=== PATIENT | female | born 1995 | race Caucasian/White ===

== ENCOUNTER 2017-02-24 08:27 | Emergency (ER) | payer OTHER ==
[2017-02-24 08:43] VITALS: BP 138/84
--- NOTE | 2017-02-24 09:44 | UC ---
UC General HPI - HPI Summary HPI Summary: SEVERAL DAYS OF BODY ACHES, ST, INTERMITTENT LOW GRADE FEVER, LOOSE STOOLS, NAUSEA. ALSO C/O 1 WEEK OF MALODOROUS VAGINAL D/C WITH SOME IRRITATION. NO URINARY SX. HAS BEEN HAVING UNPROTECTED SEX WITH BF. STATES SHE HAS HAD BV BEFORE AND THIS FEELS THE SAME. - History of Current Complaint Chief Complaint: UCGeneralIllness Stated Complaint: DIARRHEA VOMITING SORE THROAT CHILLS Time Seen by Provider: 02/24/17 08:57 Hx Obtained From: Patient Onset/Duration: Gradual Onset, Lasting Days, Still Present Timing: Constant Onset Severity: Moderate Current Severity: Moderate Pain Intensity: 7 Associated Signs & Symptoms: Positive: Cough, Fever, Nausea - Allergy/Home Medications Allergies/Adverse Reactions: Allergies Allergy/AdvReac Type Severity Reaction Status Date / Time Amoxicillin Allergy Severe Hives Verified 10/23/16 12:15 Home Medications: Home Medications hydrOXYzine HCL TAB* [Atarax 25 MG TAB*] PRN 02/24/17 [History] PMH/Surg Hx/FS Hx/Imm Hx Endocrine History Of: Denies: Diabetes, Thyroid Disease Cardiovascular History Of: Denies: Cardiac Disorders, Hypertension Respiratory History Of: Reports: Asthma Denies: COPD GI/ History Of: Denies: Ulcer Psychological History Of: Reports: Anxiety, Depression, Bipolar Disorder - Surgical History Surgical History: None - Family History Known Family History: Positive: Other - no fh of bleeding disorder. - Social History Alcohol Use: None Substance Use Type: Heroin, Prescribed, Other Substance Use Comment - Amount & Last Used: 05/03/15, clean for 16 months Smoking Status (MU): Light Every Day Tobacco Smoker Type: Cigarettes Amount Used/How Often: 1/2 ppd Length of Time of Smoking/Using Tobacco: 4-5 YRS Have You Smoked in the Last Year: Yes Household Exposure Type: Cigarettes - Immunization History Most Recent Influenza Vaccination: Refused Most Recent Tetanus Shot: 2010 Review of Systems Constitutional: Fever, Chills, Fatigue ENT: Sore Throat, Nasal Discharge Respiratory: Cough Cardiovascular: Negative Gastrointestinal: Diarrhea, Other - NAUSEA Genitourinary: Other - VAGINAL D/C All Other Systems Reviewed And Are Negative: Yes Physical Exam Triage Information Reviewed: Yes Appearance: Well-Appearing, No Pain Distress, Well-Nourished Vital Signs: Initial Vital Signs Temp 98.6 F 02/24/17 08:36 Pulse 101 02/24/17 08:36 Resp 18 02/24/17 08:36 BP 138/84 02/24/17 08:36 Pulse Ox 98 02/24/17 08:36 Vital Signs Reviewed: Yes Eyes: Positive: Conjunctiva Clear ENT: Positive: Hearing grossly normal Neck: Positive: Supple, Nontender, No Lymphadenopathy Respiratory Exam: Normal Cardiovascular: Positive: Tachycardia Abdomen Description: Positive: Soft Musculoskeletal: Positive: No Edema Neurological: Positive: Alert Psychological: Positive: Age Appropriate Behavior Skin: Negative: rashes Course/Dx - Differential Dx - Multi-Symptom Provider Diagnoses: 1. ACUTE VIRAL ILLNESS. 2. PRESUMPTIVE BV Discharge - Discharge Plan Condition: Stable Disposition: HOME Prescriptions: Metronidazole (Topical) [Metrogel] 1 applic VAGINAL DAILY #1 tube Patient Education Materials: Bacterial Vaginosis (ED), Viral Syndrome (ED) Forms: *Work Release Referrals: David Gong MD [Primary Care Provider] - If Needed
== END 2017-02-24 09:55 | disposition home or self-care (01) ==
LOC: UCEAST 08:27
DX: B34.9 Viral infection, unspecified (principal); J45.909 Unspecified asthma, uncomplicated; F11.90 Opioid use, unspecified, uncomplicated; F33.9 Major depressive disorder, recurrent, unspecified; F41.9 Anxiety disorder, unspecified; Z88.3 Allergy status to other anti-infective agents
CPT/HCPCS: 99212; G0463

== ENCOUNTER 2017-08-09 18:53 | Emergency (ER) | payer OTHER ==
[2017-08-09 19:03] VITALS: BP 140/83
--- NOTE | 2017-08-12 02:52 | ED ---
Throat Pain/Nasal Congestion - HPI Summary HPI Summary: Pt here w/ Rt earlobe tear - was trying to stretch gauge and tore lobe at 20: 00. Painful. No current bleeding. Would like repair. Imms are UTD. - History of Current Complaint Chief Complaint: EDLacSutureRecheck Time Seen by Provider: 08/09/17 19:11 Hx Obtained From: Patient - Allergies/Home Medications Allergies/Adverse Reactions: Allergies Allergy/AdvReac Type Severity Reaction Status Date / Time Amoxicillin Allergy Severe Hives Verified 10/23/16 12:15 PMH/Surg Hx/FS Hx/Imm Hx Previously Healthy: Yes Endocrine/Hematology History: Denies: Hx Anticoagulant Therapy, Hx Blood Disorders, Hx Diabetes, Hx Thyroid Disease Cardiovascular History: Denies: Hx Hypertension Respiratory History: Reports: Hx Asthma Denies: Hx Chronic Obstructive Pulmonary Disease (COPD) GI History: Denies: Hx Ulcer Psychiatric History: Reports: Hx Anxiety, Hx Depression, Hx Bipolar Disorder Infectious Disease History: No Infectious Disease History: Denies: Hx Clostridium Difficile, Hx Hepatitis, Hx Human Immunodeficiency Virus (HIV), Hx of Known/Suspected MRSA, Hx Shingles, Hx Tuberculosis, Hx Known/ Suspected VRE, Hx Known/Suspected VRSA, History Other Infectious Disease, Traveled Outside the [place] in Last 30 Days - Family History Known Family History: Positive: None, Other - no fh of bleeding disorder. - Social History Lives: Dormitory/Roommates Alcohol Use: Occasionally Hx Substance Use: Yes Substance Use Type: Reports: Heroin, Prescribed, Other Substance Use Comment - Amount & Last Used: 05/03/15, clean for 16 months Hx Tobacco Use: Yes Smoking Status (MU): Current Every Day Smoker Type: Cigarettes Amount Used/How Often: 1/2 ppd Length of Time of Smoking/Using Tobacco: 4-5 YRS Have You Smoked in the Last Year: Yes Review of Systems Constitutional: Negative Negative: Fever, Chills Negative: Vomiting, Nausea Positive: no symptoms reported Musculoskeletal: Negative Skin: Other - see HPI Neurological: Negative Positive: Anxious All Other Systems Reviewed And Are Negative: Yes Physical Exam Triage Information Reviewed: Yes Vital Signs On Initial Exam: Initial Vitals Temp Pulse Resp BP Pulse Ox 98.5 F 95 14 140/83 97 08/09/17 19:02 08/09/17 19:02 08/09/17 19:02 08/09/17 19:02 08/09/17 19:02 Vital Signs Reviewed: Yes Appearance: Positive: Well-Appearing, No Pain Distress, Well-Nourished Skin: Positive: Warm, Dry - Rt earlobe with tear through previous piercing - no active bleeding but tissue is moist w/ blood at wound edges Head/Face: Positive: Normal Head/Face Inspection Eyes: Positive: Normal, EOMI ENT: Positive: Hearing grossly normal, Pharynx normal Neck: Positive: Supple Respiratory/Lung Sounds: Positive: Breath Sounds Present Cardiovascular: Positive: Normal Musculoskeletal: Positive: Normal, Strength/ROM Intact Neurological: Positive: Normal, Sensory/Motor Intact, Alert, Oriented to Person Place, Time, CN Intact II-III Psychiatric: Positive: Anxious Diagnostics - Vital Signs Vital Signs Temp Pulse Resp BP Pulse Ox 08/09/17 19:03 98.5 F 95 14 140/83 97 08/09/17 19:02 98.5 F 95 14 140/83 97 - Laboratory Lab Statement: Any lab studies that have been ordered have been reviewed, and results considered in the medical decision making process. EENT Course/Dx - Course Course Of Treatment: Discussed with patient that I would consult plastic surgery to address best outcome of her current condition. When I returned to discuss her options she stated she needed to leave right away as she was borrowing her roommates car and had to get it back to her so roommate could go to work. Offered to suture pt's ear here tonight but she tells me she couldn't stay. Told her she could come back later tonight or go to plastic surgery tomorrow - she opted for the latter. Triple anbx ointment and bandaid applied. Pt left before further tx of anbx could be discussed. - Diagnoses Provider Diagnoses: Tear of right earlobe - Provider Notifications Discussed Care Of Patient With: Omari Vargas Discharge - Discharge Plan Condition: Stable Disposition: HOME Patient Education Materials: Acute Wound Care (ED) Referrals: Oamri Vargas MD [Medical Doctor] - Additional Instructions: Gently wash with soap and water Apply triple ointment and bandaid tonight Follow-up with Dr. Vargas's office tomorrow morning - of you delay care, wound will need to be reopened at a later date in time *If you develop redness, swelling, purulent drainage, fever, return to ED.
== END 2017-08-09 21:25 | disposition home or self-care (01) ==
LOC: ED 18:53
DX: S01.311A Laceration without foreign body of right ear, initial encounter (principal); X58.XXXA Exposure to other specified factors, initial encounter; Y92.9 Unspecified place or not applicable; F31.9 Bipolar disorder, unspecified; F17.210 Nicotine dependence, cigarettes, uncomplicated; Z53.29 Procedure and treatment not carried out because of patient's decision for other reasons
CPT/HCPCS: 99281

== ENCOUNTER 2018-05-16 22:19 | Emergency (ER) | payer OTHER ==
[2018-05-16 23:46] LABS: ABS Basophils 0 10^3/ul (0-0.2); ABS Eosinophils 0.3 10^3/ul (0-0.6); ABS Lymphocytes 2.3 10^3/ul (1.0-4.8); ABS Monocytes 0.7 10^3/ul (0-0.8); ABS Neutrophils 2.7 10^3/ul (1.5-7.7); ABS Nucleated RBC 0 10^3/ul; Eosinophil % 5.1 % (0-6); Hematocrit 36 % (35-47); Hemoglobin 12.5 g/dl (12.0-16.0); Lymphocyte % 38.4 % (25-47); Mean Corpuscular HGB Conc 35 g/dl (31-36); Mean Corpuscular Hemoglobin 29 pg (27-31); Mean Corpuscular Volume 84 fL (80-97); Mean Platelet Volume 8.1 um3 (7.4-10.4); Nucleated Red Blood Cells % 0.1; Platelet Count 272 10^3/ul (150-450); Red Blood Count 4.25 10^6/ul (4.00-5.40); Red Cell Distribution Width 13 % (10.5-15)
[2018-05-17 00:03] LABS: EGFR Non-African American 106.3 (>60)
[2018-05-17 01:19] VITALS: BP 114/67
--- NOTE | 2018-05-17 05:07 | ED ---
Donn Castillo Gabriel, scribed for Dieudonne Pham MD on 05/16/18 at 2311 . Lower Extremity - HPI Summary HPI Summary: This patient is a 23 year old F presenting to [facility] accompanied by her mother with a chief complaint of bilateral LE edema that she noticed 3 weeks ago. The patient rates the pain 3/10 in severity. Patient reports a warm spot on her LE and LE pain. Pt denies fever, CP, and SOB. Pt left [facility] two weeks ago, there she was given a diuretic that she still takes. Fmhx of DVT. - History of Current Complaint Chief Complaint: EDExtremityLower Stated Complaint: LEGS SWOLLEN Time Seen by Provider: 05/16/18 22:57 Hx Obtained From: Patient Hx Last Menstrual Period: 02/10/17 Onset/Duration: Still Present Severity Initially: Moderate Severity Currently: Moderate Pain Intensity: 3 Pain Scale Used: 0-10 Numeric Timing: Constant Location: Is Diffuse - bilateral LE Associated Signs And Symptoms: Positive: Swelling. Negative: Fever Able to Bear Weight: Yes - Allergies/Home Medications Allergies/Adverse Reactions: Allergies Allergy/AdvReac Type Severity Reaction Status Date / Time amoxicillin Allergy Hives Verified 05/16/18 22:23 codeine Allergy Hives Verified 05/16/18 22:23 Home Medications: Home Medications Buprenorphine HCl/Naloxone HCl [Suboxone 12 mg-3 mg Sl Film] 1 each SL DAILY [History Confirmed 05/16/18] Buprenorphine HCl/Naloxone HCl [Suboxone] 1 mis SL DAILY 05/16/18 [History Confirmed 05/16/18] Divalproex ER TAB(*) [Depakote ER TAB(*)] 500 mg PO BID 05/16/18 [History Confirmed 05/16/18] Gabapentin 300 mg PO TID 05/16/18 [History Confirmed 05/16/18] busPIRone TAB* [Buspar TAB *] 7.5 mg PO TID 05/16/18 [History Confirmed 05/16/18 ] PMH/Surg Hx/FS Hx/Imm Hx Endocrine/Hematology History: Denies: Hx Anticoagulant Therapy, Hx Blood Disorders, Hx Diabetes, Hx Thyroid Disease Cardiovascular History: Denies: Hx Hypertension Respiratory History: Reports: Hx Asthma Denies: Hx Chronic Obstructive Pulmonary Disease (COPD) GI History: Denies: Hx Ulcer Psychiatric History: Reports: Hx Anxiety, Hx Depression, Hx Bipolar Disorder, Hx Substance Abuse Infectious Disease History: No Infectious Disease History: Denies: Hx Clostridium Difficile, Hx Hepatitis, Hx Human Immunodeficiency Virus (HIV), Hx of Known/Suspected MRSA, Hx Shingles, Hx Tuberculosis, Hx Known/ Suspected VRE, Hx Known/Suspected VRSA, History Other Infectious Disease, Traveled Outside the [place] in Last 30 Days - Family History Known Family History: Positive: Blood Disorder - DVT , Other - no fh of bleeding disorder. Negative: Respiratory Disease, Seizure Disorder - Social History Lives: With Family Alcohol Use: Occasionally Hx Substance Use: Yes Substance Use Type: Reports: Heroin, Prescribed, Other Substance Use Comment - Amount & Last Used: 05/03/15, clean for 16 months Hx Tobacco Use: Yes Smoking Status (MU): Current Every Day Smoker Type: Cigarettes Amount Used/How Often: 1/2 ppd Length of Time of Smoking/Using Tobacco: 4-5 YRS Have You Smoked in the Last Year: Yes Review of Systems Negative: Fever Negative: Chest Pain Negative: Shortness Of Breath Musculoskeletal: Other - LE pain Positive: Edema All Other Systems Reviewed And Are Negative: Yes Physical Exam - Summary Physical Exam Summary: Appearance: Well appearing, no pain distress, patient has a baseline tremor Skin: warmth and redness on the interior lower leg with excoriations Head/face: normal Eyes: EOMI, KARLOS ENT: normal Neck: supple, non-tender Respiratory: CTA, breath sounds present Cardiovascular: RRR, pulses symmetrical Abdomen: non-tender, soft Bowel Sounds: present Musculoskeletal: strength/ROM intact, 2-3+ bilateral pitting edema that does not extend above the knees Neuro: normal, sensory motor intact, A&Ox3 Triage Information Reviewed: Yes Vital Signs On Initial Exam: Initial Vitals Temp Pulse Resp BP Pulse Ox 97.4 F 112 14 117/76 97 05/16/18 22:20 05/16/18 22:20 05/16/18 22:20 05/16/18 22:20 05/16/18 22:20 Vital Signs Reviewed: Yes Diagnostics - Vital Signs Vital Signs Temp Pulse Resp BP Pulse Ox 05/16/18 22:20 97.4 F 112 14 117/76 97 - Laboratory Lab Results: Lab Results 05/16/18 05/16/18 Range/Units 23:36 23:36 WBC 6.0 (3.5-10.8) 10^3/ul RBC 4.25 (4.00-5.40) 10^6/ul Hgb 12.5 (12.0-16.0) g/dl Hct 36 (35-47) % MCV 84 (80-97) fL MCH 29 (27-31) pg MCHC 35 (31-36) g/dl RDW 13 (10.5-15) % Plt Count 272 (150-450) 10^3/ul MPV 8.1 (7.4-10.4) um3 Neut % (Auto) 44.4 (38-83) % Lymph % (Auto) 38.4 (25-47) % [place] % (Auto) 11.6 H (0-7) % Eos % (Auto) 5.1 (0-6) % Baso % (Auto) 0.5 (0-2) % Absolute Neuts (auto) 2.7 (1.5-7.7) 10^3/ul Absolute Lymphs (auto) 2.3 (1.0-4.8) 10^3/ul Absolute Monos (auto) 0.7 (0-0.8) 10^3/ul Absolute Eos (auto) 0.3 (0-0.6) 10^3/ul Absolute Basos (auto) 0 (0-0.2) 10^3/ul Absolute Nucleated RBC 0 10^3/ul Nucleated RBC % 0.1 Sodium 137 (135-145) mmol/L Potassium 4.2 (3.5-5.0) mmol/L Chloride 99 L (101-111) mmol/L Carbon Dioxide 31 (22-32) mmol/L Anion Gap 7 (2-11) mmol/L BUN 11 (6-24) mg/dL Creatinine 0.68 (0.51-0.95) mg/dL Est GFR ( Amer) 136.7 (>60) Est GFR (Non-Af Amer) 106.3 (>60) BUN/Creatinine Ratio 16.2 (8-20) Glucose 106 H (70-100) mg/dL Calcium 9.5 (8.6-10.3) mg/dL Total Bilirubin 0.30 (0.2-1.0) mg/dL AST 20 (13-39) U/L ALT 11 (7-52) U/L Alkaline Phosphatase 42 (34-104) U/L Total Protein 6.7 (6.4-8.9) g/dL Albumin 3.5 (3.2-5.2) g/dL Globulin 3.2 (2-4) g/dL Albumin/Globulin Ratio 1.1 (1-3) Beta HCG, Quant < 0.60 mIU/mL Valproic Acid 35.0 L (50-100) mcg/mL Result Diagrams: 05/16/18 23:36 05/16/18 23:36 Lab Statement: Any lab studies that have been ordered have been reviewed, and results considered in the medical decision making process. - Ultrasound No standard instances Ultrasound Interpretation Completed By: Radiologist - Venous doppler- no DVT. Dr. Pham has reviewed this report. Lower Extremity Course/Dx - Course Course Of Treatment: Patient with now chronic lower extremity edema. Patient is on a host of medications which are likely causing the symptoms. Her legs have not appreciably changed in a couple weeks. Lasix has no effect. Negative for DVT. Laboratories otherwise unrevealing. Encouraged patient to wear compression stockings, follow up closely with her primary care physician and psychiatry for medication reevaluation. - Diagnoses Differential Diagnosis/HQI/PQRI: Positive: Other - DVT, cellulitis, medication effect, venous insufficiency, nephrotic syndrome Provider Diagnoses: Bilateral leg edema, Medication side effect Discharge - Sign-Out/Discharge Documenting (check all that apply): Discharge/Admit/Transfer - Discharge Plan Condition: Improved Disposition: HOME Patient Education Materials: Leg Edema (ED) Referrals: David Gong MD [Primary Care Provider] - Additional Instructions: Work impression stockings as discussed. See her doctor as soon as possible to discuss medications. Swelling is likely caused by a combination of medications that you are on. Return if worse, fevers, new symptoms or other concerns. - Billing Disposition and Condition Condition: IMPROVED Disposition: Home The documentation as recorded by the Donn winchester Gabriel accurately reflects the service I personally performed and the decisions made by , Dieudonne Pham MD.
--- NOTE | 2018-05-17 07:45 | RAD ---
INDICATION: Bilateral lower extremity edema. COMPARISON: There are no prior studies available for comparison. TECHNIQUE: Multiple real-time, color flow and Doppler tracings of both lower extremities were obtained. FINDINGS: The common femoral, femoral, profunda femoral and popliteal veins all demonstrate normal compressibility, augmentation with compression and phasic response with respiration. The posterior tibial and peroneal veins demonstrate normal compressibility and augmentation with compression. IMPRESSION: NO EVIDENCE FOR DEEP VENOUS THROMBOSIS.
== END 2018-05-17 01:21 | disposition home or self-care (01) ==
LOC: ED 22:19
DX: R60.0 Localized edema (principal); T50.905A Adverse effect of unspecified drugs, medicaments and biological substances, initial encounter; Y92.9 Unspecified place or not applicable; F17.210 Nicotine dependence, cigarettes, uncomplicated; Z83.2 Family history of diseases of the blood and blood-forming organs and certain disorders involving the immune mechanism; F32.9 Major depressive disorder, single episode, unspecified; F41.9 Anxiety disorder, unspecified
CPT/HCPCS: 36415; 80053; 80164; 84702; 85025; 93970; 99283

== ENCOUNTER 2018-07-21 10:49 | Emergency (ER) | payer OTHER ==
[2018-07-21 11:02] VITALS: BP 117/63
--- NOTE | 2018-07-21 11:14 | UC ---
Skin Complaint HPI - HPI Summary HPI Summary: A 23 y/o F [place] [facility] [place]/o multiple insect bites across bilat UE onset s/p moving into a new home. Associated sx: insect bite areas are erythematous and pruritic. She denies bites anywhere else on her body. Pain is rated as 0/ 10. PMHx: asthma. Patient is a smoker. 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 - History of Current Complaint Chief Complaint: UCSkin Time Seen by Provider: 07/21/18 11:11 Stated Complaint: SKIN ISSUE Hx Obtained From: Patient Hx Last Menstrual Period: 06/13/18 Onset/Duration: Still Present Current Severity: Mild Pain Intensity: 0 Pain Scale Used: 0-10 Numeric Location: Diffuse - UE Character: Pruritus, Redness Associated Signs & Symptoms: Negative: Fever Related History: Insect Bite/Sting - Allergy/Home Medications Allergies/Adverse Reactions: Allergies Allergy/AdvReac Type Severity Reaction Status Date / Time amoxicillin Allergy Hives Verified 07/21/18 11:02 codeine Allergy Hives Verified 07/21/18 11:02 Home Medications: Home Medications Spironolactone-Hctz 25-25 Tab 1 tab PO DAILY 07/21/18 [History Confirmed ] Review of Systems Constitutional: Negative - fever Skin: Other - multiple inscet bites that are red and itchy All Other Systems Reviewed And Are Negative: Yes PMH/Surg Hx/FS Hx/Imm Hx Previously Healthy: No Other Cardiovascular History: neg: HTN Respiratory History: Asthma Psychological History: Anxiety, Depression, Bipolar Disorder, Other - substance abuse Other Psychological History: ex-substance abuse Other History Of: Negative For: Anticoagulant Therapy - Surgical History Surgical History: None - Family History Known Family History: Positive: Hypertension, Diabetes, Blood Disorder - DVT , Other - Stroke Negative: Respiratory Disease, Seizure Disorder - Social History Occupation: Unemployed Lives: Alone Alcohol Use: None 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, clean for 16 months Smoking Status (MU): Light Every Day Tobacco Smoker Type: Cigarettes Amount Used/How Often: 1/2 ppd Length of Time of Smoking/Using Tobacco: 4-5 YRS Have You Smoked in the Last Year: Yes Household Exposure Type: Cigarettes - Immunization History Most Recent Influenza Vaccination: Refused Most Recent Tetanus Shot: 2010 Physical Exam - Summary Physical Exam Summary: VITAL SIGNS: Reviewed. GENERAL: Patient is a well-developed and nourished FEMALE who is lying comfortable in the stretcher. Patient is not in any acute respiratory distress. HEAD AND FACE: Normocephalic EYES: PERRLA, EOMI x 2. EARS: Hearing grossly intact. MOUTH: Oropharynx within normal limits. NECK: Supple, trachea is midline, no adenopathy, no JVD, no carotid bruit. CHEST: Symmetric, no tenderness at palpation LUNGS: Clear to auscultation bilaterally. No wheezing or crackles. CVS: Regular rate and rhythm, S1 and S2 present, no murmurs or gallops appreciated. ABDOMEN: Soft, non-tender. Bowel sounds are normal. No abdominal abnormal pulsations. EXTREMITIES: Full ROM in all major joints, no edema, no cyanosis or clubbing. NEURO: Alert and oriented x 3. No acute neurological deficits. Speech is normal and follows commands. SKIN: Dry and warm. Erythematous patches with irregular borders of both UE. Triage Information Reviewed: Yes Vital Signs: Initial Vital Signs Temp 98 F 07/21/18 10:59 Pulse 97 07/21/18 10:59 Resp 16 07/21/18 10:59 BP 117/63 07/21/18 10:59 Pulse Ox 98 07/21/18 10:59 Vital Signs Reviewed: Yes Course/Dx - Course Course Of Treatment: 29-year-old female presents to the urgent care with the complaining of multiple insect bites. Patient has no signs of cellulitis. Patient was given a prescription for Triple Antibiotic. Patient will be discharged home with follow-up with PCP. She is hemodynamically stable alert and oriented 3. - Diagnoses Provider Diagnoses: Insect bites Discharge - Sign-Out/Discharge Documenting (check all that apply): Patient Departure - DC All imaging exams completed and their final reports reviewed: No Studies - Discharge Plan Condition: Stable Disposition: HOME Prescriptions: Neomycn/Bacitrc/Polymyx/Pramox [Triple Antibiotic Plus Oint] 14 gm TP BID #1 tube Patient Education Materials: Insect Bite or Sting (ED) Referrals: David Gong MD [Primary Care Provider] - Additional Instructions: Take medications as instructed and adhere to plan Take Acetaminophen or ibuprofen for pain or fever Increase your fluid intake Return to the or go to the emergency department if symptoms worsen Follow-up with primary care physician in next 2-3 days - Billing Disposition and Condition Condition: STABLE Disposition: Home - Attestation Statements Document Initiated by Drewibpaul: Yes Documenting Scribe: Farhat Medrano Provider For Whom Scribe is Documenting (Include Credential): Parvez Huizar MD Scribe Attestation: IFarhat, scribed for Parvez Huizar MD on 07/21/18 at 1145. Scribe Documentation Reviewed: Yes Provider Attestation: The documentation as recorded by the Farhat winchester accurately reflects the service I personally performed and the decisions made by me, Parvez Huizar MD
== END 2018-07-21 11:27 | disposition home or self-care (01) ==
LOC: UCEAST 10:49
DX: S40.862A Insect bite (nonvenomous) of left upper arm, initial encounter (principal); S40.861A Insect bite (nonvenomous) of right upper arm, initial encounter; W57.XXXA Bitten or stung by nonvenomous insect and other nonvenomous arthropods, initial encounter; Y92.9 Unspecified place or not applicable; J45.909 Unspecified asthma, uncomplicated; Z88.0 Allergy status to penicillin; Z88.5 Allergy status to narcotic agent; F17.210 Nicotine dependence, cigarettes, uncomplicated
CPT/HCPCS: 99212; G0463

== ENCOUNTER 2019-04-27 15:42 | Emergency (ER) | payer MEDICAID, OTHER ==
[2019-04-27 16:12] VITALS: BP 120/74
--- NOTE | 2019-04-27 16:18 | UC ---
Respiratory Complaint HPI - HPI Summary HPI Summary: 24 y/o female presents to the urgent care c/o sore throat, sinus congestion w/ yellowish nasal discharge for the past 1.5 weeks. Pt states Hx of Asthma and symptoms worsen about 4 days ago w/ productive cough, moderate yellowish PND, and wheezing. she has been using her albuterol inhaler w/o any improvement of symptoms. Pt has not taken anything to alleviate cough. Pt denies fever, SOB, chest pain, abdominal pain, N/V/D. LMP: 09/2018 w/ irregular menstrual cycles due to her Dysmenorrhea. Pt declines test sicne she states no sexually active and her JOURNAL CLERK has recently done a lot of testing in order tho manage her dysmenorrhea. - History of Current Complaint Chief Complaint: UCGeneralIllness Stated Complaint: COUGH, SINUSES Time Seen by Provider: 04/27/19 16:17 Hx Obtained From: Patient Hx Last Menstrual Period: 09/2018 ?: No - Pt declines test, states her JOURNAL CLERK is managing her dismenorrhea Onset/Duration: Gradual Onset, Lasting Weeks - 1 week, Still Present Timing: Intermittent Episodes Severity Initially: Mild Severity Currently: Moderate Pain Intensity: 0 Pain Scale Used: 0-10 Numeric Character: Cough: Productive, Sputum Description: - yellowish Aggravating Factors: Recumbent Position Alleviating Factors: Bronchodilator Associated Signs And Symptoms: Positive: Chills, Wheezing - mild, URI, Nasal Congestion - yellowish, Sinus Discomfort. Negative: Fever - Risk Factors Pulmonary Embolism Risk Factors: Negative Cardiac Risk Factors: Negative Pseudomonas Risk Factors: Negative Tuberculosis Risk Factors: Negative - Allergies/Home Medications Allergies/Adverse Reactions: Allergies Allergy/AdvReac Type Severity Reaction Status Date / Time amoxicillin Allergy Hives Verified 07/21/18 11:02 codeine Allergy Hives Verified 07/21/18 11:02 Home Medications: Home Medications Fluticasone DISKUS 100 MCG(NF) [Flovent Diskus 100 MCG(NF)] PO DAILY 04/27/19 [ History] PMH/Surg Hx/FS Hx/Imm Hx Previously Healthy: Yes Respiratory History: Asthma Other History Of: Negative For: Anticoagulant Therapy - Surgical History Surgical History: None - Family History Known Family History: Positive: Hypertension, Diabetes, Blood Disorder - DVT , Other - Stroke Negative: Respiratory Disease, Seizure Disorder - Social History Occupation: Employed Full-time Lives: With Family Alcohol Use: None 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, clean for 16 months Smoking Status (MU): Light Every Day Tobacco Smoker Type: Cigarettes Amount Used/How Often: 1/2 ppd Length of Time of Smoking/Using Tobacco: 4-5 YRS Have You Smoked in the Last Year: Yes Household Exposure Type: Cigarettes - Immunization History Most Recent Influenza Vaccination: Refused Most Recent Tetanus Shot: 2010 Review of Systems All Other Systems Reviewed And Are Negative: Yes Constitutional: Positive: Chills Skin: Positive: Negative Eyes: Positive: Negative ENT: Positive: Sore Throat - mild, Nasal Discharge - yellowish, Sinus Congestion , Sinus Pain/Tenderness, Other - PND Respiratory: Positive: Cough - productive w/ yellowish phlegm, Other - mild wheezing Cardiovascular: Positive: Negative Gastrointestinal: Positive: Negative Genitourinary: Positive: Negative Motor: Positive: Negative Neurovascular: Positive: Negative Musculoskeletal: Positive: Negative Neurological: Positive: Negative Psychological: Positive: Negative Is Patient Immunocompromised?: No Physical Exam - Summary Physical Exam Summary: Vital Signs Reviewed: Yes General: well developed, well nourished female sitting in the examining table w/ o any apparent distress Eyes: Positive: Conjunctiva Clear - PERRLA, EOMI, fundi grossly normal ENT: Positive: Normal ENT inspection, Hearing grossly normal, Pharynx normal, Nasal congestion - edematous and erythematous nasal mucosa, Nasal drainage - yellowish drainage, TMs normal. Negative: Tonsillar swelling, Tonsillar exudate Neck: Positive: Supple, Nontender, No Lymphadenopathy Respiratory: no orthopnea or dyspnea. Able to speak in full sentences, no retractions or accessory muscle use, no tripod position, stridor, or head bobbing. Positive breath sounds bilaterally. diffuse scattered rhonchi and mild wheezing on b/L lungs, no crackles or rales. Cardiovascular: Positive: RRR, No Murmur, Pulses Normal, Brisk Capillary Refill Abdomen Description: Positive: Nontender, No Organomegaly, Soft. Negative: CVA Tenderness (R), CVA Tenderness (L) Bowel Sounds: Positive: Present Musculoskeletal Exam: Normal Musculoskeletal: Positive: Strength Intact, ROM Intact, No Edema Neurological Exam: Normal Psychological Exam: Normal Skin Exam: Normal Triage Information Reviewed: Yes Vital Signs: Initial Vital Signs Temp 98.1 F 04/27/19 16:07 Pulse 84 04/27/19 16:07 Resp 16 04/27/19 16:07 BP 120/74 04/27/19 16:07 Pulse Ox 98 04/27/19 16:07 Respiratory Course/Dx - Course Course Of Treatment: 24 y/o female presents to the urgent care c/o sore throat, sinus congestion w/ yellowish nasal discharge for the past 1.5 weeks. Pt states Hx of Asthma and symptoms worsen about 4 days ago w/ productive cough, moderate yellowish PND, and wheezing. she has been using her albuterol inhaler w/o any improvement of symptoms. Pt has not taken anything to alleviate cough. Pt denies fever, SOB, chest pain, abdominal pain, N/V/D. LMP: 09/2018 w/ irregular menstrual cycles due to her Dysmenorrhea. Pt declines test since she states no sexually active and her JOURNAL CLERK has recently done a lot of testing in order tho manage her dysmenorrhea. Hx obtained. Pt w/ scattered bilaterally lungs rhonchi and mild wheezing, good air entry B/L on examination. O2Sat:98%. Pt given Duoneb Treatment by nurser to alleviate symptoms. Pt tolerated well treatment and lungs improved,and wheezing resolved. Chest X-ray ordered: no acute cardiopulmonary disease observed as per radiologist. Pt w/ acute bronchitis Patient prescribed Doxycycline PO and Flonase nasal spray, Advise to continue using albuterol inhaler and Robitussin PO to alleviate symptoms as directed below. The patient was recommended to increase fluid intake. Take medications as recommended. Pt advised to returned to the clinic or f/u w/ her PCP if symptoms do not improve. All D/C instructions explained. Patient understood and agree w/ plan of care. Pt left clinic hemodynamically stable , A& OX3 - Differential Dx/Diagnosis Differential Diagnosis/HQI/PQRI: Asthma, Bronchitis, Influenza, Sinusitis Provider Diagnosis: Acute bronchitis, Wheezing Discharge - Sign-Out/Discharge Documenting (check all that apply): Patient Departure - D/C home All imaging exams completed and their final reports reviewed: No Studies - Discharge Plan Condition: Stable Disposition: HOME Prescriptions: DOXYcycline CAP(*) [DOXYcycline 100MG CAP(*)] 100 mg PO BID #20 cap Fluticasone NASAL SPRAY 50MCG* [Flonase NASAL SPRAY 50MCG*] 2 spray BOTH NARES DAILY #1 btl Patient Education Materials: Acute Bronchitis (ED) Referrals: Lili Ro MD [Primary Care Provider] - 3 Days Additional Instructions: 1-Please take full course of antibiotic to avoid resistance. Take yogurt w/ probiotics or Culturelle to protect yoru GI system 2-Take Robitussin PO as directed and use the albuterol inhaler to alleviate cough. Increase fluid intake, rest and eat well. 3- Use Flonase nasal spray and saline drops to clear your sinuses as directed 3- If symptoms do not improve or worsen or your develop SOB with fever and severe cough please go immediately to the ER further evaluation and treatment. 4-See your PCP 3 days is not improvement of symptoms for further management - Billing Disposition and Condition Condition: STABLE Disposition: Home
[2019-04-27] MEDS ORDERED: Albuterol/Ipratropium NEB.SOL* Albuterol 2.5 MG/Ipratropium 0.5 MG 3 ML INH ONE (16:28)
== END 2019-04-27 17:23 | disposition home or self-care (01) ==
LOC: UCCORT 15:42
DX: J20.9 Acute bronchitis, unspecified (principal); F17.210 Nicotine dependence, cigarettes, uncomplicated
CPT/HCPCS: 71046; 99212; A9270-GY; G0463

== ENCOUNTER 2020-01-02 11:51 | Emergency (ER) | payer MEDICAID, OTHER | END 2020-01-02 12:56 | disposition left against medical advice (07) | LOC: UCCORT 11:51 | DX: Z53.21 Procedure and treatment not carried out due to patient leaving prior to being seen by health care provider (principal) ==